=== PATIENT | male | born 1970 | race Hispanic/Latino ===

== ENCOUNTER 2023-06-13 11:32 | Outpatient (RCR) | payer BC, SELFPAY | END 2023-06-29 23:59 | disposition home or self-care (01) | LOC: CPTX 11:32 | PROVIDERS: PCP Nurse Practitioner Family; Referring Provider Nurse Practitioner Family; Visit Provider Nurse Practitioner Family | DX: Z53.9 Procedure and treatment not carried out, unspecified reason (principal) ==